=== PATIENT | male | born 1985 | race Hispanic/Latino ===

== ENCOUNTER 2016-04-20 08:17 | Emergency (ER) | payer OTHER ==
[~2016-04-20] VITALS: Ht 162.6 cm; Wt 67.1 kg
[~2016-04-20 08:17] MED LIST: PERCOCET 325 MG1 TA2 PO; ZOFRAN 4 MG TABL4 MG PO
--- NOTE | 2016-04-20 08:49 | ED CARDIAC/CP/PALPITATIONS ---
History of Present Illness General Chief Complaint: Palpitations Stated Complaint: HEART PALPS Source: patient Exam Limitations: no limitations Reconcile Medications Ondansetron (Zofran 4 MG Tablet) 4 MG TAB 1-2 TAB PO Q6H PRN PRN NAUSEA/ VOMITING OXYCODONE HCL/ACETAMINOPHEN (Percocet 5-325 MG Tablet) 325 MG/5 MG TAB 1-2 TAB PO Q4-6 PRN PRN PAIN Triage Note: PT TO ED WITH C/O PALPATIONS, CHEST PAIN S/P ETOH AND SMOKED CRACK ALL THROUGH THE NIGHT LAST NIGHT. HEART RATE 120-138 IN TRIAGE. Triage Nurses Notes Reviewed? yes HPI: COREY IS A 31 YO M W/ PMH OF SUBSTANCE ABUSE AND DEPRESSION PRESENTING TO ED FOR PALPITATIONS. PATIENT STATES HE DRANK ALOT OF ALCOHOL LAST NIGHT, THEN DID CRACK COCAINE "ALL NIGHT LONG". PT STATES HE OCCASSIONALLY SMOKES CIGARETTES, ALSO ONLY WHEN HE DRINKS. PT STATES HE DOES CRACK INTERMITTENTLY, A FEW TIMES/ MO. THIS AM, WHEN HE HAD STOPPED, HE NOTED SOME CENTRALLY LOCATED CP AND PALPITATIONS. PAIN IS CENTRALLY LOCATED AND NONRADIATING. PAIN IS SHARP IN NATURE. + SOB WHEN THE PAIN AND PALPIATIONS BEGAN. PT STATES THIS WAS WORSE THAN PREVIOUS PANIC ATTACKS. PT DENIES ANY FAMILY HX OR PERSONAL HX OF CARDIAC DISEASE. NO SUDDEN DEATHS IN THE FAMILY. PT DOES SMOKE CIGARETTES INTERMITTENTLY AND INTERMITENT CRACK USE. PT DENIES COUGH, ABD PAIN, N/V/D, DYSURIA, FEVER OR CHILLS. (ETELVINA LAU,ENEDELIA) Vital Signs & Intake/Output Vital Signs & Intake/Output Vital Signs Date Time Temp Pulse Resp B/P Pulse O2 O2 Flow FiO2 Ox Delivery Rate 04/20 1054 90 22 124/76 98 Room Air 04/20 1006 95 04/20 0956 98.3 100 15 115/73 100 Room Air Room Air 04/20 0827 97.3 103 22 131/75 98 Room Air 04/20 0827 97.5 102 20 131/75 99 Room Air Room Air Allergies Coded Allergies: nut - unspecified (Intermediate, ITCHING 04/20/16) (ELENA LAU,JESSICA Saez) Past History Travel History Traveled to [place] past 21 day No Medical History Any Pertinent Medical History? 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 No (ENEDELIA MAIN MD) Review of Systems Review of Systems Constitutional: Reports: no symptoms. EENTM: Reports: no symptoms. Respiratory: Reports: short of breath. Cardiovascular: Reports: chest pain, palpitations. Denies: peripheral edema, syncope. GI: Reports: no symptoms. Genitourinary: Reports: no symptoms. Musculoskeletal: Reports: no symptoms. Skin: Reports: no symptoms. Neurological/Psychological: Reports: no symptoms. Hematologic/Endocrine: Reports: no symptoms. Immunologic/Allergic: Reports: no symptoms. All Other Systems: Reviewed and Negative (ENEDELIA MAIN MD) Physical Exam Physical Exam General Appearance: well developed/nourished, no apparent distress, alert, awake , anxious Head: atraumatic, normal appearance Eyes: Bilateral: normal appearance, PERRL, EOMI. Ears, Nose, Throat: normal pharynx, normal ENT inspection, hearing grossly normal Neck: normal inspection, supple, full range of motion Respiratory: normal breath sounds, chest non-tender, no respiratory distress Cardiovascular: regular rate/rhythm, normal peripheral pulses Gastrointestinal: normal bowel sounds, soft, non-tender Rectal: deferred Back: normal inspection, normal range of motion Extremities: normal inspection, normal capillary refill, normal range of motion, no edema Neurologic/Psych: no motor/sensory deficits, awake, alert, oriented x 3, normal gait Skin: intact, normal color, warm/dry Lymphatic: no anterior cervical yumiko Core Measures ACS in differential dx? Yes ASA ordered for poss ACS? NO. LIKELY VASOSPASM RELATED TO COCAINE USE Severe Sepsis Present: No Septic Shock Present: No (ENEDELIA MAIN MD) Progress Differential Diagnosis: AMI, aortic dissection, costochondritis, hypovolemia, musculoskeletal pain, pancreatitis, pneumothorax, PVCs/PACs, unstable angina CXR Impression: No radiographically active disease noted in the chest. Initial ED EKG: no ST T wave changes, abnormal Q waves (Q-WAVES INFERIORLY), SINUS TACHYCARDIA (ENEDELIA MAIN MD) Plan of Care: Orders Procedure Date/time Status URINE DRUGS OF ABUSE 04/20 850 Complete TROPONIN LEVEL 04/20 835 Complete CBC WITHOUT DIFFERENTIAL 04/20 835 Complete BASIC METABOLIC PANEL 04/20 835 Complete EKG 04/20 817 Active Laboratory Tests 04/20/16 0855: Urine Opiates Screen < 100.00, Methadone Screen 40, Barbiturate Screen < 60, Ur Phencyclidine Scrn < 6.00, Amphetamines Screen < 100, U Benzodiazepines Scrn < 85, Urine Cocaine Screen > 1000 H, Urine Cannabis Screen < 5.00 04/20/16 0835: Anion Gap 16, Estimated GFR > 60, BUN/Creatinine Ratio 7.5, Glucose 133 H, Calcium 9.4, Troponin I < 0.01, CBC w Diff NO MAN DIFF REQ, RBC 4.49 L, MCV 87.7, MCH 30.0, RDW 12.9, MPV 8.3, Gran % 89.3 H, Lymphocytes % 8.0 L, Monocytes % 2.4, Eosinophils % 0, Basophils % 0.3, Absolute Granulocytes 7.7 H, Absolute Lymphocytes 0.7 L, Absolute Monocytes 0.2, Absolute Eosinophils 0, Absolute Basophils 0, PUBS MCHC 34.2 31 YO M W/ DEPRESSION AND POLYSUBTANCE ABUSE PRESENTING W/ PALPIATIONS, CP AND SOB. PT HAD COCAINE FERNANDES LAST NIGHT. SX LIKELY RELATED TO DRUG USE/ABUSE. HERE, PATIENT IS WELL-APPEARING. PAIN AND SOB SINCE IMPROVED SINCE LAYING DOWN IN A BED IN ED AND RELAXING. GIVEN COCAINE USE, PT AT INCREASED RISK OF AMI AND CARDIAC ARRYTHMIA, SECONDARY TO RATE-RELATED DEMAND. CARDIAC RISK FACTORS INCLUDE SMOKING/DRUG-USE AND MALE SEX. NO HTN, HLD, DM OR AGE FACTORS. PATIENT'S SX ARE CONSISTENT W/ ACUTE USE (PALPITATIONS/SOB) AND HE IS NOW CP FREE. WILL OBTAIN LABS INCLUDING TROP. EKG NONISHEMIC. WILL GIVE 1L IV BOLUS OF NS. PAIN DOES NOT RADIATING AND IS NOT TEARING IN NATURE TO SUGGEST AORTIC DISSECTION. WILL OBTAIN XR. PER CLINICAL PRESENATION, UNLIKELY THAT THIS PAIN IS CARDIAC IN NATURE. WILL RE-ASSESS AFTER LABS AND FLUID BOLUS. (MOHAMED MD,ENEDELIA) Departure Departure Disposition: HOME OR SELF CARE Condition: Stable Clinical Impression Primary Impression: Cocaine abuse Secondary Impressions: Palpitations Referrals: VICKY KENNEDY MD (PCP/Family) Additional Instructions: PLEASE DO NOT USE DRUGS IT INCREASES YOUR CHANCES OF HAVING A HEART ATTACK SIGNIFICANTLY. DO NOT SMOKE CIGARETTES. THIS ALSO INCREASES YOUR RISK OF HEART ATTACK. IF YOU HAVE WORSENING IN SYMPTOMS, DEVELOP FEVER, OR ANYTHING ELSE CONCERNING, PLEASE RETURN TO THE EMERGENCY DEPARTMENT FOR EVALUATION. Departure Forms: Customer Survey General Discharge Information (ENEDELIA MAIN MD) Resident Co-Sign Statement Statement: ED Attending supervision documentation- [x] I saw and evaluated the patient. I have also reviewed all the pertinent lab results and diagnostic results. I agree with the findings and the plan of care as documented in the Resident's documentation. [] I have reviewed the ED Record and agree with the Resident's documentation. [] Additions or exceptions (if any) to the Resident's note and plan are summarized below: [] (ELENA LAU,JESSICA Saez) Critical Care Note Critical Care Note Critical Care Time: non-applicable (ENEDELIA MAIN MD)
[2016-04-20 08:52] LABS: ABSOLUTE BASOPHIL COUNT 0 /CUMM (0.0-0.2); ABSOLUTE EOSINOPHIL COUNT 0 /CUMM (0.0-0.7); ABSOLUTE GRANULOCYTE CT 7.7 /CUMM (1.4-6.5); ABSOLUTE LYMPH COUNT 0.7 /CUMM (1.2-3.4); ABSOLUTE MONOCYTE COUNT 0.2 /CUMM (0.10-0.60); BASOPHIL % 0.3 % (0.0-2.0); EOSINOPHIL % 0 % (0-5); HEMATOCRIT 39.4 % (42-52); MEAN CORPUSCULAR HGB CONC 34.2 G/DL (33.0-37.0); MEAN CORPUSCULAR VOLUME 87.7 FL (80.0-94.0); MEAN PLATELET VOLUME 8.3 FL (7.4-10.4); PLATELET COUNT 246 /CUMM (130-400); RBC DISTRIBUTION WIDTH 12.9 % (11.5-14.5); RED BLOOD CELL CT 4.49 /CUMM (4.70-6.10); WHITE BLOOD CELL COUNT 8.6 /CUMM (4.8-10.8)
[2016-04-20 09:17] LABS: GRANULOCYTE % 89.3 % (42.2-75.2)
--- NOTE | 2016-04-20 10:17 | RADIOLOGY REPORT ---
EXAMINATION: XR CHEST CLINICAL INFORMATION: Palpitations. Chest pain. COMPARISON: Chest radiograph 03/19/2010 and 08/23/2014. TECHNIQUE: 2 views of the chest were obtained. FINDINGS: No significant abnormality is noted involving the heart, lungs, mediastinum, bony thorax or soft tissues. IMPRESSION: No acute cardiopulmonary process identified.
[2016-04-20 10:54] VITALS: BP 124/76
== END 2016-04-20 11:13 ==
LOC: ERH 08:17
PROVIDERS: Emergency Medicine
DX: R00.2 Palpitations (principal); F14.10 Cocaine abuse, uncomplicated
CPT/HCPCS: 80307; 93005; 93010; 96360; 96361